=== PATIENT | male | born 1990 | race Two or more races ===

== ENCOUNTER 2024-03-14 11:36 | Emergency (ER) | payer OTHER ==
[~2024-03-14] VITALS: Ht 180.3 cm; Wt 135.2 kg
[~2024-03-14 11:36] MED LIST: TAMS0.4C PO
[2024-03-14] MEDS ORDERED: FAMOTIDINE/PF 20 MG/2 ML VIAL ONE (13:25)
[2024-03-14] MEDS ORDERED: FAMOtidine 10 MG/ML (4ML VIAL) IV ONE (13:30)
[2024-03-14] MEDS ORDERED: 0.9 % SODIUM CHLORIDE 1,000 ML IV ONE (13:30)
[2024-03-14 14:05] LABS: HEMATOCRIT 48.1 % (39.0-48.0); HEMOGLOBIN 16.8 g/dL (13-16.00); MEAN CELL VOLUME 85.6 fL (80.0-100.00); MEAN CORPUSCULAR HEMOGLOBIN 29.9 pg (27.00-32.0); PLATELET COUNT 257 K/uL (150-450); RED BLOOD COUNT 5.63 M/uL (4.00-6.00); RED CELL DISTRIBUTION WIDTH 12.4 % (11.5-14.5)
[2024-03-14 14:34] LABS: INR 1.01; PARTIAL THROMBOPLASTIN TIME 26.7 SECONDS (22.0-34.0)
[2024-03-14 14:36] LABS: ALBUMIN 3.9 gm/dL (3.4-5.0); BILIRUBIN TOTAL 0.82 mg/dL (0.3-1.2); CALCIUM 9.6 mg/dL (8.5-10.1); CREATININE SERUM 0.85 mg/dL (0.70-1.30); GFR 103.81; GLOBULINA 4.3 G/DL (2.4-3.5); POTASSIUM 4.13 mEq/L (3.5-5.1); TOTAL PROTEIN 8.2 gm/dL (6.4-8.2)
[2024-03-14 15:46] LABS: PH,URINE 5.5 (5.0-8.0); URINE APPEARANCE Clear; URINE BILIRRUBIN Negative (NEGATIVE); URINE BLOOD Negative; URINE COLOR Yellow; URINE KETONE Trace (NEGATIVE); URINE LEUKOCYTE Trace; URINE NITRATE Negative
[2024-03-14 15:50] LABS: URINE BACTERIA 1458.9 uL (0.0-1933); URINE EPITHELIAL CELLS 12.9 uL (0.0-38.8); URINE RBC 28.8 uL (0.0-20.8); URINE WBC 128.7 uL (0.0-23.2)
[2024-03-14 16:31] LABS: URINE CAST 0.76 uL (0.0-1.40); URINE GLUCOSE >=1000 MG/DL (NEGATIVE); URINE PROTEIN 100 (NEGATIVE); URINE YEAST FEW /hpf
[2024-03-14 16:32] LABS: URINE SPERM FEW
[2024-03-14] MEDS ORDERED: PEPCID AC20 MG PO (17:24)
[2024-03-14] MEDS ORDERED: LEVSIN/SL0.125 MG SL (17:24)
[2024-03-14] MEDS ORDERED: MAG HYDROX/ALUMINUM HYD/SIMETH 30 ML BLIST.PACK PO ONE ×2 (17:33→17:45)
[2024-03-14] MEDS ORDERED: SUCRALFATE 1 G TABLET PO ONE (17:45)
== END 2024-03-14 17:40 | disposition home or self-care (01) ==
LOC: ER 11:37
PROVIDERS: General Practice
DX: R10.13 Epigastric pain (principal); R11.10 Vomiting, unspecified; K29.70 Gastritis, unspecified, without bleeding
CPT/HCPCS: 36415; 71045; 74177; Q9965